=== PATIENT | female | born 1950 | race Caucasian/White ===

== ENCOUNTER 2017-12-20 22:39 | Emergency (ER) | payer BC ==
[2017-12-20 23:51] LABS: #Basophils 0.1 thou/uL (0.0-0.2); #Eosinphils 0.1 thou/uL (0.0-0.7); #Lymphocytes 2.2 thou/uL (1.20-3.40); #Monocytes 0.6 thou/uL (0.11-0.59); #Neutrophils 4.4 thou/uL (1.40-6.50); %Lymphocytes 30.3 % (21.0-51.0); %Monocytes 8.4 % (0.0-10.0); %Neutrophils 59.2 % (42.0-75.0); Hemoglobin 13.8 g/dL (12.0-16.0); Mean Corpuscular HGB CONC 35.2 g/dL (32.0-36.0); Mean Corpuscular Hemoglobin 29.4 pg (27.0-31.0); Mean Corpuscular Volume 83.5 fL (78.0-98.0); Mean Platelet Volume 5.7 fL (7.4-10.4); Platelet Count 267 thou/uL (130-400); Red Blood Cell (RBC) Count 4.69 mill/uL (4.20-5.40); White Blood Cell (WBC) Count 7.4 thou/uL (4.8-10.8)
[2017-12-20 23:56] LABS: Bilirubin Negative (Negative); Clarity Clear (Clear); Glucose, Urine (Dipstick) Negative (Negative); Leukocyte Moderate (Negative); Nitrite Negative (Negative); Protein, Urine (Dipstick) Negative (Neg-Trace); Urobilinogen 0.2 mg/dL (0.2-1.0); pH, Urine 5.5 (5.0-9.0)
[2017-12-20 23:57] LABS: Blood, Urine Negative (Negative); Specific Gravity, Urine 1.006 (1.002-1.036)
[2017-12-21 00:02] LABS: INR-International Normal Ratio 0.9; PTT 25.7 SEC (22.9-36.1); Prothrombin Time 11.9 SEC (12.0-14.7)
[2017-12-21 00:03] LABS: ALT (SGPT) 28 U/L (8-55); AST (SGOT) 24 U/L (5-34); Albumin 4.4 g/dL (3.4-4.8); Alkaline Phosphatase 96 U/L (40-150); Anion Gap 16 mmol/L (10-20); BUN (Urea Nitrogen) 24 mg/dL (9.8-20.1); Bilirubin, Total 0.3 mg/dL (0.2-1.2); Calc. Creatinine Clearance 0 mL/min (70-130); Calcium 9.6 mg/dL (7.8-10.44); Carbon Dioxide 23 mmol/L (23-31); Chloride 102 mmol/L (98-107); Estimated GFR-MDRD 78; Globulin 2.9 g/dL (2.4-3.5); Glucose 79 mg/dL (80-115); Potassium 3.9 mmol/L (3.5-5.1); Protein, Total 7.3 g/dL (6.0-8.3); Sodium 137 mmol/L (136-145)
[2017-12-21 00:04] LABS: CKMB 1.5 ng/mL (0-6.6); Troponin I Less than 0.010 ng/mL (< 0.028)
[2017-12-21 00:07] LABS: Bacteria/HPF 2+ HPF (None Seen); RBC/HPF 0-3 HPF (0-3); Squamous Epithelial 0-3 HPF (0-3)
== END 2017-12-21 00:34 | disposition home or self-care (01) ==
LOC: BURERS 22:39
DX: I10 Essential (primary) hypertension (principal); N39.0 Urinary tract infection, site not specified; E03.9 Hypothyroidism, unspecified; M06.9 Rheumatoid arthritis, unspecified; F41.9 Anxiety disorder, unspecified; F32.9 Major depressive disorder, single episode, unspecified; Z79.899 Other long term (current) drug therapy
CPT/HCPCS: 80053; 81003; 81015; 82553; 84443; 84484; 85025; 85610; 85652; 85730; 87086; 93005

== ENCOUNTER 2021-04-07 02:56 | Emergency (ER) | payer BC, SELFPAY ==
[2021-04-07] MEDS ORDERED: Morphine 2 MG/ML VIAL ONE (03:39)
[2021-04-07] MEDS ORDERED: Ondansetron PF 4 MG/2 ML Vial ONE (03:39)
[2021-04-07 03:40] LABS: #Basophils 0.1 thou/uL (0.0-0.2); #Eosinphils 0.2 thou/uL (0.0-0.7); #Lymphocytes 2.4 thou/uL (1.20-3.40); #Monocytes 0.6 thou/uL (0.11-0.59); #Neutrophils 3.9 thou/uL (1.40-6.50); %Basophils 1.6 % (0.0-1.0); %Eosinophils 2.3 % (0.0-10.0); %Lymphocytes 33.8 % (21.0-51.0); %Monocytes 7.7 % (0.0-10.0); %Neutrophils 54.6 % (42.0-75.0); Hemoglobin 13.9 g/dL (12.0-16.0); Mean Corpuscular HGB CONC 33.8 g/dL (32.0-36.0); Mean Corpuscular Hemoglobin 30.7 pg (27.0-31.0); Mean Corpuscular Volume 90.8 fL (78.0-98.0); Mean Platelet Volume 6.8 fL (7.4-10.4); Platelet Count 305 thou/uL (130-400); RBC Distribution Width 11.9 % (11.5-14.5); Red Blood Cell (RBC) Count 4.54 mill/uL (4.20-5.40); White Blood Cell (WBC) Count 7.2 thou/uL (4.8-10.8)
[2021-04-07 04:03] LABS: ALT (SGPT) 20 U/L (8-55); AST (SGOT) 19 U/L (5-34); Albumin 4.2 g/dL (3.4-4.8); Alkaline Phosphatase 94 U/L (40-110); Anion Gap 17 mmol/L (10-20); BUN (Urea Nitrogen) 20 mg/dL (9.8-20.1); Bilirubin, Total 0.5 mg/dL (0.2-1.2); Calc. Creatinine Clearance 0 mL/min (70-130); Calcium 10.1 mg/dL (7.8-10.44); Carbon Dioxide 21 mmol/L (23-31); Chloride 103 mmol/L (98-107); Globulin 3.2 g/dL (2.4-3.5); Glucose 98 mg/dL (80-115); Lipase 56 U/L (8-78); Potassium 3.7 mmol/L (3.5-5.1); Protein, Total 7.4 g/dL (5.8-8.1); Sodium 137 mmol/L (136-145)
[2021-04-07] MEDS ORDERED: Piperacillin/Tazobactam 4.5 GM VIAL ONE (06:31)
[2021-04-07] MEDS ORDERED: Sodium Chloride 0.9% 100 ML ONE (06:32)
[2021-04-07] MEDS ORDERED: Iopamidol 370 76% 100 ML VIAL ONE (11:20)
== END 2021-04-07 08:51 | disposition short-term general hospital (02) ==
LOC: BURERS 02:56
DX: K81.0 Acute cholecystitis (principal); E03.9 Hypothyroidism, unspecified; I10 Essential (primary) hypertension; M06.9 Rheumatoid arthritis, unspecified; Z79.899 Other long term (current) drug therapy
CPT/HCPCS: 71275; 74174; 80053; 83690; 84484; 85025; 93005; 96365; 96375; J2270; J2405; J2543; J3490; Q9967

== ENCOUNTER 2023-03-18 14:47 | Emergency (ER) | payer MEDICARE ==
[~2023-03-18 14:47] MED LIST: Iopamidol 370 76% 100 ML VIAL ONE
[2023-03-18] MEDS ORDERED: Sucralfate 1 GM/10 ML UDCUP ONE (14:58)
[2023-03-18] MEDS ORDERED: Morphine 4 MG/ML VIAL ONE ×2 (15:05→15:48)
[2023-03-18] MEDS ORDERED: Famotidine/PF 20 mg/2ml Vial ONE ×2 (15:05→17:35)
[2023-03-18] MEDS ORDERED: Ondansetron PF 4 MG/2 ML Vial ONE (15:05)
[2023-03-18] MEDS ORDERED: Pantoprazole 40 MG VIAL ONE (15:05)
[2023-03-18 15:08] LABS: #Basophils 0.1 thou/uL (0.0-0.2); #Eosinphils 0.1 thou/uL (0.0-0.7); #Monocytes 0.6 thou/uL (0.11-0.59); %Basophils 1.3 % (0.0-1.0); %Eosinophils 1.7 % (0.0-10.0); %Lymphocytes 44.4 % (21.0-51.0); %Monocytes 8.3 % (0.0-10.0); %Neutrophils 44.4 % (42.0-75.0); Hematocrit 48.5 % (36.0-47.0); Hemoglobin 15.3 g/dL (12.0-16.0); Mean Corpuscular HGB CONC 31.4 g/dL (32.0-36.0); Mean Corpuscular Hemoglobin 29.1 pg (27.0-31.0); Mean Corpuscular Volume 92.6 fl (78.0-98.0); Mean Platelet Volume 7.5 fL (7.4-10.4); Platelet Count 326 10x3/uL (130-400); RBC Distribution Width 12.7 % (11.5-14.5); Red Blood Cell (RBC) Count 5.24 mill/uL (4.20-5.40); White Blood Cell (WBC) Count 6.8 10x3/uL (4.8-10.8)
[2023-03-18 15:26] LABS: ALT (SGPT) 33 U/L (8-55); AST (SGOT) 26 U/L (5-34); Albumin 4.4 g/dL (3.4-4.8); Alkaline Phosphatase 103 U/L (40-110); Anion Gap 14 mmol/L (10-20); BUN (Urea Nitrogen) 22 mg/dL (9.8-20.1); Bilirubin, Total 0.4 mg/dL (0.2-1.2); Calc. Creatinine Clearance 0 mL/min (70-130); Calcium 9.7 mg/dL (7.8-10.44); Carbon Dioxide 26 mmol/L (23-31); Chloride 104 mmol/L (98-107); Estimated GFR 76; Globulin 3.4 g/dL (2.4-3.5); Glucose 106 mg/dL (83-110); Lipase 92 U/L (8-78); Potassium 4.1 mmol/L (3.5-5.1); Protein, Total 7.8 g/dL (5.8-8.1); Sodium 140 mmol/L (136-145)
== END 2023-03-18 17:27 | disposition short-term general hospital (02) ==
LOC: BURERS 14:47
DX: K85.90 Acute pancreatitis without necrosis or infection, unspecified (principal); R10.13 Epigastric pain; I10 Essential (primary) hypertension; E03.9 Hypothyroidism, unspecified; M06.9 Rheumatoid arthritis, unspecified; Z79.899 Other long term (current) drug therapy
CPT/HCPCS: 74177; 80053; 83605; 83690; 85025; 96374; 96375; 96376; C9113; J2270; J2405; Q9967; S0028